=== PATIENT | female | born 1990 | race Caucasian/White ===

== ENCOUNTER 2018-11-01 13:27 | Outpatient (CLI) | payer BC | END 2018-11-01 15:12 | disposition home or self-care (01) | LOC: DL.OBCHECK 13:27 ==

== ENCOUNTER 2018-11-04 08:12 | Outpatient (CLI) | payer BC ==
--- NOTE | 2018-11-04 11:47 | HP ---
CHIEF COMPLAINT: "I think my water broke." HISTORY OF PRESENT ILLNESS: Mrs. Mota is a 28-year-old, 2, para 0-0- 1-0, female. Last menstrual period on 01/28/2018, EDC of 11/04/2018, EGA 40 weeks gestation. She reports to Labor and Delivery at [facility] in [facility] because she had leakage of fluid. She was also having some contractions. Denies any nausea, vomiting, or diarrhea. No fever or chills. No hematochezia, hematemesis, or hematuria. No dysuria, frequency, or urgency with urination. No leg pain, leg edema, or severe abdominal or back pain. The changes that she has had slight mucus, but is not continuous. She has not had any issues in the . She has done quite well. She is a patient of Dr. Rosie Terry. PAST MEDICAL HISTORY: She denies any hypertension, heart disease, seizure disorder, thyroid disorder, diabetes, thromboembolic disease, or breast lesions. She has history of asthma, degenerative joint disease, anxiety. SOCIAL HISTORY: She denies any tobacco use, alcohol use, or illicit drug use. She is and lives in [facility]. 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 OBSTETRICAL HISTORY: She had spontaneous AB in March 2014. ALLERGIES: No known drug allergies. MEDICATIONS: vitamin. LABORATORY DATA: Blood type A negative. Antibody screen negative. RPR nonreactive. Rubella nonimmune. Hepatitis B surface antigen nonreactive. Group B strep is negative. OBJECTIVE: General: Well-developed, well-nourished female, in no acute distress. Vital Signs: Stable, afebrile. Abdomen: Soft, gravid, nontender. Fundal height 40 cm. heart tones 130s to 140s, category 1 strip. Reactive NST. Occasional contraction. No pooling or leakage of fluid noted. Negative Nitrazine. Cervix at the most is fingertip with no changes during her stay here. Extremities: No edema, erythema, or tenderness noted. ASSESSMENT: 1. A 40-week intrauterine . 2. False labor. 3. Negative Nitrazine. No active leakage of fluid noted. PLAN: 1. Follow up with Dr. Rosie Terry on 11/07/2018, or sooner if labor occurs. 2. We had a long discussion on reasons to come in including bleeding, leakage of fluid, contractions every 2 to 3 minutes lasting more than a couple of hours. 3. All questions answered. [facility] /[id number]
== END 2018-11-04 10:39 | disposition home or self-care (01) ==
LOC: DL.OBCHECK 08:12
CPT/HCPCS: 83986

== ENCOUNTER 2018-11-05 21:00 | Inpatient (IN) | payer BC ==
[2018-11-05] MEDS ORDERED: hydrOXYzine HCl 25 MG Tab PO STA (23:04)
[2018-11-05] MEDS ORDERED: Nalbuphine 10 MG/1 ML Vial IM PRN (23:05)
[2018-11-06] MEDS ORDERED: Sodium Chloride 0.9% 10 ML Syringe FLUSH PRN ×2 (00:19→20:04)
[2018-11-06] MEDS: Acetaminophen 325 MG Tab PO PRN (02:42)
--- NOTE | 2018-11-06 03:15 | HP ---
CHIEF COMPLAINT: Increased frequency and more painful contractions. SUBJECTIVE: Wicho is a 28-year-old female, G2, P 0-0-1-0, at 40 weeks and 1 day gestational with medication exposure during first trimester due to back surgery (Robaxin and gabapentin) as well as hyperemesis gravidarum. The patient has had painful contractions ranging from 2 to 6 minutes apart. Contractions first started on (4 days ago). The contractions wake her up at night. She has some watery fluid, but not a lot. There has been some pink tinge in her mucus on Monday, Monday, and today. Denies any headaches, visual changes, chest pain. Only shortness of breath when she has contractions. She has had nausea and vomiting throughout the whole . Last time she vomited was yesterday. Denies any fevers or chills. HISTORY: Spontaneous in March 2014 at 4 weeks 0 days. This was not medically evaluated. PAST MEDICAL HISTORY: 1. Hyperemesis gravidarum with current . 2. Asthma (mild intermittent asthma without complication). 3. L5/S1 disk disease, degenerative disk disease. 4. Myofascial pain. 5. Anxiety. 6. Obesity. BMI between 35 and 39.9. PAST SURGICAL HISTORY: 1. L5/S1 diskectomy on 02/14/2018. 2. Cholecystectomy. 3. [place] teeth extraction. FAMILY HISTORY: Father and paternal grandmother, asthma; great aunt, breast cancer; paternal grandfather, diabetes; father and maternal grandfather, heart disease. SOCIAL HISTORY: Wicho lives at [facility] near [place] with Wilfredo Mota. He is a williamson with his cousin/uncle/family and with the [employer] Parents are originally from [place] (father) and [place] (mother), but goes between there and [place]. 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 She went through [employer] Nursing Program. She grew up in [place] and went to college there before moving here. She had a horse for the last 5 years and worked at [employer] before that. CURRENT MEDICATIONS: 1. Unisom. 2. Zofran. 3. Hydroxyzine. 4. Fluoxetine. 5. vitamin with iron. 6. Pantoprazole. 7. Acetaminophen. ALLERGIES: No known allergies. REVIEW OF SYSTEMS: HEENT: No headaches or visual changes. Pulmonary: Shortness of breath with her contractions. Cardiovascular: No chest pain, no palpitations. Gastrointestinal: Nausea and vomiting throughout . Last vomited yesterday. OBJECTIVE: Vital Signs: Temperature 98.8, blood pressure 117/80, pulse 84. heart rate 135, category 1 tracing. Contractions about every 4 to 8 minutes, variable. General: She is alert, cooperative, and bothered by contractions. HEENT: Grossly normal. Pulmonary: Lungs are clear to auscultation bilaterally. Cardiovascular: Regular rate and rhythm. No murmurs noted. Abdomen: Bowel sounds present. No pain to palpation. Gravid uterus noted. Extremities: 1+ edema bilaterally. No tenderness to palpation. Cervical: 2+, about 80% effaced, and -3 station. LABORATORY DATA: Blood type A-negative, rubella nonimmune, group B strep negative. ASSESSMENT: 1. G2, P 0-0-1-0 at 40 weeks and 1 day gestation. 2. Hyperemesis gravidarum. 3. Obesity. 4. Anxiety and depression. PLAN: Admit for observation. Continue routine labor care. The patient was seen and evaluated today by me and Dr. Terry. Assessment and plan are under advisement of Dr. Terry. Kavinkatina Roque, MS-III [facility] /[id number] I have seen and evaluated the above patient, and reviewed and edited the above notes. Agree with assessment and treatment plan. Rosie Terry MD [facility] SYSTEMColleen
[2018-11-06] MEDS: Lactated Ringers 1,000 ML IV SCH ×4 (06:44→13:02)
[2018-11-06] MEDS ORDERED: Lidocaine 1% 30 ML SDV INJECT PRN (07:26)
[2018-11-06] MEDS ORDERED: Methylergonovine 0.2 MG/1 ML Amp IM PRN (07:26)
[2018-11-06] MEDS ORDERED: Misoprostol 400 MCG (4 X 100 MCG TAB) RECTAL PRN ×2 (07:26→20:04)
[2018-11-06] MEDS ORDERED: Ondansetron 4 MG/2 ML SDV IV PRN (07:26)
[2018-11-06] MEDS ORDERED: Carboprost Tromethamine 250 MCG/1 ML Amp IM PRN ×2 (07:26→20:04)
[2018-11-06] MEDS ORDERED: Acetaminophen 325 MG Tab PO PRN ×2 (07:26→20:04)
[2018-11-06] MEDS ORDERED: Tranexamic Acid 1,000 MG in Sodium Chloride 0.9% 100 ML IV PRN ×2 (07:26→20:04)
[2018-11-06] MEDS ORDERED: fentaNYL 100 MCG/2 ML SDV ITHECAL ONE (07:27)
[2018-11-06] MEDS ORDERED: EPINEPHrine 1 MG/ML SDV ONE ×3 (07:27→12:45)
[2018-11-06] MEDS ORDERED: Oxytocin/Normal Saline 30 UNIT/500 ML BAG IV SCH (07:30)
[2018-11-06] MEDS ORDERED: fentaNYL 100 MCG/2 ML SDV ONE ×2 (07:31→12:45)
--- NOTE | 2018-11-06 08:19 | PCM.PRNOTE ---
- Free Text/Narrative Note: Requested to provide analgesia to full term patient in severe pain. Upon entering the room, patient is sitting on edge of bed complaining of severe abdominal/pelvic pain and discomfort. Procedure was discussed with patient including adverse outcomes and expectations. Pt has a history of back problems including a microdiscectomy at L5/S1 including multiple steroid injections for which she was "put to sleep" for them. Pt consented to analgesia, SAB/IT. Pt placed into a proper sitting position. Landmarks for SAB/IT were identified and marked. Hands were washed and appropriate PPE was applied. Back was prepped with betadine x3. A sterile, transparent, fenestrated drape was applied. Excess betadine was removed. Using 3 mL of a 1% lidocaine solution, a skin wheel was placed at the L2/L3 interspace. A 24 ga (4 inch) Pencan spinal needle was inserted unsuccessfully. Pt is extremely guarded of back and having a difficult time maintaining position for procedure. Attempt number two was at L3/L4 using a 24 ga (4 inch) Pencan spinal needle. The needle was inserted until positive for CSF. Negative for heme or paresthesias. Injected fentanyl 30 mcg, sufentanil 25 mcg, and 8.25 mg of a 0.75% bupivacaine solution with an epi wash. Pt was placed left lateral position for approximately 20 minutes. There were zero complications or adverse outcomes. Will continue to monitor. Procedure Date & Time: 11/06/18 [id number]
--- NOTE | 2018-11-06 09:09 | PN ---
DATE: 11/06/2018 SUBJECTIVE: The patient is a 28-year-old 2, para 0-0-1-0 presenting at 40 weeks and 2 days gestation via ultrasound on 11/04/2018. The patient presented to Labor and Delivery in early stages of labor on 11/05/2018 and has progressed well overnight. She has utilized the Jacuzzi tub as well as Vistaril and Nubain for pain control and to help relax and rest prior to active labor. She states she has continued to have contractions every 2 to 5 minutes with continuation of lots of active movement. After resting and receiving pain medication, the patient was checked again at 06:30 and was noted to be 6 cm, 85% effaced and -2 station. At this time, an intrathecal was desired and is being administered now at 07:45. The patient has no other concerns at this time. care received at [facility]--see EPIC episode for details. OBJECTIVE: Vital Signs: Temperature 97 degrees Fahrenheit, HR 92 bpm, BP 124/73, and RR 16 breaths per minute. General: Awake, alert, in mild distress due to contractions. HEENT: Grossly normal. Pulmonary: Lungs are clear to auscultation bilaterally. Cardiovascular: Regular rate and rhythm. No murmurs noted. Abdomen: Soft, nontender, normoactive bowel sounds. Gravid uterus palpated 21 cm above umbilicus. Extremities: Trace edema noted in ankles bilaterally. No calf tenderness bilaterally. Neurologic: Grossly normal. NST reactive. ASSESSMENT: The patient is a 28-year-old female, 2, para 0-0-1-0 female presenting at 40 weeks and 2 days gestation. The patient is now in active labor and received an intrathecal. GBS negative primipara A negative blood type rubella non-immune PLAN: 1. Continue expectant management of labor progression. The patient was seen and evaluated today by myself and Dr. Rosie Terry. Assessment and plan is under advisement of Dr. Terry. -Akosua Valverde MS-III [facility] /[id number] I have seen and evaluated this patient with the student, and have reviewed and edited the above notes. I agree with the evaluation and plan. Rosie Terry MD [facility]Col[facility]
[2018-11-06] MEDS: Pantoprazole 40 MG Tab.CR PO SCH (11:31)
--- NOTE | 2018-11-06 13:13 | PCM.PRNOTE ---
- Free Text/Narrative Note: Requested to provide analgesia to full term patient in severe pain. Upon entering the room, patient is sitting on edge of bed complaining of severe abdominal/pelvic pain and discomfort. Procedure was discussed with patient including adverse outcomes and expectations. Pt consented to analgesia, SAB/ IT. Pt placed into a proper sitting position. Landmarks for SAB/IT were identified and marked. Hands were washed and appropriate PPE was applied. Back was prepped with betadine x3. A sterile, transparent, fenestrated drape was applied. Excess betadine was removed. Using 3 mL of a 1% lidocaine solution , a skin wheel was placed at the L2/L3 interspace. A 24 ga (4 inch) Pencan spinal needle was inserted until positive for CSF. Negative for heme or paresthesias. Injected fentanyl 20 mcg, sufentanil 25 mcg, and 7.5 mg of a 0.75 % bupivacaine solution with an epi wash. Pt was placed left lateral position for approximately 20 minutes. There were zero complications or adverse outcomes. Will continue to monitor. Procedure Date & Time: 11/06/18 [id number]
--- NOTE | 2018-11-06 13:45 | PN ---
DATE: 10/27/2018 SUBJECTIVE: The patient is a 28-year-old 2, para 0-0-1-0, who presented in labor at 40 weeks' and 2 days' gestation. The patient was seen and evaluated at 10 a.m., and at cervical check, was noted to be 6 to 7 cm dilated, 90% effaced, -2 station. At this time, the patient underwent artificial rupture of membranes with bloody fluid present. The patient tolerated artificial rupture of membranes well and has now been monitored closely for progression of labor. OBJECTIVE: Vital Signs: Blood pressure 119/75, heart rate 88. General. Lying comfortably in bed, in no acute distress. Cervix: 6 to 7 cm dilated, 90% effaced, -2 station. After AROM, heart tone baseline 145 bpm, reactive. [place], intermittent contractions between 1 and 5 minutes. Category 1 strip. ASSESSMENT: The patient is a 28-year-old 2, para 0-0-1-0 presenting at 40 weeks' and 2 days' gestation with progression of labor. Artificial rupture of membranes at 10 a.m. Bloody fluid present. PLAN: Continue expectant management of labor. Following closely. The patient was seen and evaluated today by myself and Dr. Rosie Terry. Assessment and plan is under advisement of Dr. Terry. -Akosua Valverde MS-III [facility] /[id number] MTDD
--- NOTE | 2018-11-06 14:18 | PN ---
DATE: 11/06/2018 SUBJECTIVE: The patient was noted to be feeling contractions again after intrathecal anesthesia. Upon repeat check, the patient was noted to still be 7 cm with a second bag of water that was now bulging. So artificial rupture of membranes was repeated and with production of clear fluid. The patient is breathing through contractions at this time as they have gotten closer together, and baby tolerated procedure well. heart tones are baseline 140 at this time. Moderately reactive. Contractions are noted every 1-1/2 to 3 minutes in duration. OBJECTIVE: Vital Signs: Blood pressure 140/78. Cervix: 7 cm dilated, 90% effaced, -2 station. Clear fluid present at exam. ASSESSMENT: The patient is a 28-year-old, 2, para 0-0-1-0 presenting at 40-2/7 weeks' gestation in labor. PLAN: Continue expectant management. a second intrathecal is felt to be appropriate at this time. The patient was seen and evaluated today by myself and Dr. Rosie Terry. Assessment and plan is under advisement of Dr. Terry. [facility] /[id number] Rosie Terry MD MTDD
--- NOTE | 2018-11-06 19:15 | PCM.DEL ---
<Akosua Valverde - Last Filed: 11/06/18 19:50> L & D Note - General Info Date of Service: 11/06/18 Mother's Due Date: 11/04/18 - Delivery Note Labor: Spontaneous, Augmented by Oxytocin Delivery Outcome: Livebirth Infant Delivery Method: Spontaneous Vaginal Delivery-Single Infant Delivery Mode: Vacuum Extraction Presentation: Left Occiput Posterior (LOP) Nuchal Cord: None Anesthesia Type: Intrathecal Anesthetic: Lidocaine (Xylocaine) 0.5% Plain Local Anesthetic Volume: 5cc Amniotic Fluid Description: Clear Episiotomy Type: None Laceration: 2nd Degree, Perineal, Vaginal (small hemostatic on right anterior) Suture type: Vicryl Suture size: 2-0 Placenta: Intact Cord: 3 Vessels Estimated Blood Loss: 300 Resuscitation Needed: No : Bulb Syringe, Stimulated, Warmed, [place] Used, Warmer Used Provider: Rosie Terry Score 1 min: 7 Score 5 min: 8 Second Stage Interventions: Reports: Laboring Down, Pushing, Reverse Squat, Pushing Ineffectively, Pushing, Feet in Foot Rests, Pushing, Knee Chest Position , Pushing, Squat Bar Pulling on Device, Pushing, Squat Bar Pulling on Sheet, Pushing, Stirrups/Leg Supports Delivery Comments (Free Text/Narrative):: Patient is a 28 year old [id number] who presented in early labor at 40w2d gestation. Patient received 2 intrathecals for pain control which allowed for progression of labor. Please see labor progress notes for further details. Patient was complete at around 14:30 and was allowed to labor down. Began pushing at 15:50. Multiple pushing positions utilized with coaching. Intermittent effective pushing noted. Due to ineffective pushing and failure to progress with intermittent tachycardia procedure with vacuum assisted delivery was done and verbal consent by patient was given. A low profile Kiwi device was placed and with single contraction vacuum provided progression through the canal to head presentation past . Baby presented in LOP position. Patient was instruction to push and anterior shoulder was assisted and delivery of body followed shortly thereafter at 18:30. Baby was dried, stimulated and bulb suctioned with only weak momentary cry heard. Three vessel cord was then clamped and cut by father of baby (Wilfredo). Baby was brought to warmer, stimulated, and given 2 breaths with CPAP providing adequate respirations without intervention thereafter. Fundal massage was done with subsequent delivery of intact placenta at 18:38. Inspection of vagina showed one small anterior vaginal wall laceration on right that was hemostatic and did not necessitate repair. A grade 2 perineal laceration was visualized and repaired successfully with hemostasis. Patient was then cleaned and baby was kept in room to initiate bonding and . Induction Criteria - Augmentation Estimated Pelvis: Reports: Adequate Weight Estimated:: Reports: AGA Reassuring Monitoring Strip: Yes Absence of Tachy Systole: Yes Vacuum Extractor Progress Note - Alternative Labor Strategies Considered Alternative Labor Strategies Considered:: Reports: Yes Strategies Considered:: Reports: Contraction Intensity Adequate, Position Changes Used to Facilitate Rotation & Descent, Empty Bladder, Rest Indications Considered:: Reports: Yes Indications:: Reports: Prolonged 2nd Stage, Shortening of 2nd Stage for Maternal Benefit, Suspicion of Immediate or Potential Compromise Time Out:: Reports: Yes - Patient Prepared Patient Prepared:: Reports: Yes Informed Consent:: Reports: Verbal Risks: Reports: Yes Anesthesia/Analgesia Adequate:: Reports: Yes Comments:: Intrathecal - Probability of Success High Probability of Success:: Reports: Yes Weight Estimated:: Reports: AGA Patient Diabetic:: Reports: No Pelvis Adequate:: Reports: Yes Position:: LOP Asynclitic:: Reports: No Station:: +2 - Application Time Maximum Application Time & Number of Pop-Offs Predetermined:: Reports: Yes Total Application Time (min): *max=20min: 1 (with less than 1 contraction) Number of Times Cup Disengaged:: 0 Type of Vacuum Used:: Reports: Low profile Vacuum Extraction: Successful - Exit Strategy Exit strategy available:: Reports: Yes and resuscitation teams readily available:: Reports: Yes Consult as indicated:: Not Indicated Comments:: Successful Vacuum without complication - Patient Data Vitals - Most Recent: Last Vital Signs Temp 98.8 F 11/06/18 13:05 Pulse 69 11/06/18 14:30 Resp 16 11/06/18 14:30 BP 108/61 11/06/18 14:30 Pulse Ox 98 11/06/18 13:15 Weight - Most Recent: 246 lb I&O - Last 24 Hours: Intake & Output 11/06/18 11/06/18 11/06/18 06:59 14:59 22:59 Intake Total 1999 Balance 1999 Lab Results Last 24 Hours: Laboratory Results - last 24 hr 11/05/18 11/05/18 Range/Units 22:35 23:55 WBC 12.1 H (5.0-10.0) 10^3/uL RBC 4.36 (4.2-5.4) 10^6/uL Hgb 13.6 (12.0-16.0) g/dL Hct 39.6 (37.0-47.0) % MCV 90.8 (80-100) fL MCH 31.2 (27.0-34.0) pg MCHC 34.3 (33.0-35.0) g/dL Plt Count 216 (150-450) 10^3/uL Neut % (Auto) 75.0 (42.2-75.2) % Lymph % (Auto) 16.4 L (20.5-50.1) % [place] % (Auto) 8.2 H (2-8) % Eos % (Auto) 0.2 L (1.0-3.0) % Baso % (Auto) 0.2 (0.0-1.0) % Urine Color Yellow (YELLOW) Urine Appearance Clear (CLEAR) Urine pH 8.5 (5.0-9.0) Ur Specific [place] 1.015 (1.005-1.030) Urine Protein Trace H (NEGATIVE) Urine Glucose (UA) Negative (NEGATIVE) Urine Ketones Negative (NEGATIVE) Urine Occult Blood Trace-intact H (NEGATIVE) Urine Nitrite Negative (NEGATIVE) Urine Bilirubin Negative (NEGATIVE) Urine Urobilinogen 0.2 (0.2-1.0) mg/dL Ur Leukocyte Esterase Negative (NEGATIVE) Urine RBC 0-5 /HPF Urine WBC 0-5 (0-5/HPF) /HPF Ur Epithelial Cells Few /HPF Urine Bacteria Few (0-FEW/HPF) /HPF Med Orders - Current: Current Medications Acetaminophen (Tylenol) 650 mg PO Q6H PRN PRN Reason: Pain Last Admin: 11/06/18 02:42 Dose: 650 mg Acetaminophen (Tylenol) 650 mg PO Q4H PRN PRN Reason: Pain (Mild 1-3) and fever Carboprost Tromethamine (Hemabate Ds) 250 mcg IM ASDIRECTED PRN PRN Reason: HEMORRHAGE Lactated Ringer's (Ringers, Lactated) 1,000 mls @ 125 mls/hr IV ASDIRECTED [facility] Last Admin: 11/06/18 07:34 Dose: 125 mls/hr Lactated Ringer's (Ringers, Lactated) 1,000 mls @ 125 mls/hr IV ASDIRECTED [facility] Last Admin: 11/06/18 13:02 Dose: 125 mls/hr Oxytocin/Sodium Chloride (Pitocin In Ns 30 Unit/500 Ml) 30 unit in 500 mls @ 2 mls/hr IV TITRATE JOAQUIN; Protocol Last Titration: 11/06/18 18:38 Dose: 500 mls/hr Tranexamic Acid 1,000 mg/ (Sodium Chloride) 110 mls @ 660 mls/hr IV ONETIME PRN PRN Reason: Bleeding Lidocaine HCl (Xylocaine-Mpf 1%) 30 ml INJECT ASDIRECTED PRN PRN Reason: Perineal Repair Last Admin: 11/06/18 18:50 Dose: 30 ml Methylergonovine Maleate (Methergine) 0.2 mg IM ASDIRECTED PRN PRN Reason: Hemorrhage Misoprostol (Cytotec) 800 mcg RECTAL ASDIRECTED PRN PRN Reason: Hemorrhage Ondansetron HCl (Zofran) 4 mg IV Q4H PRN PRN Reason: Nausea/Vomiting Pantoprazole Sodium (Protonix) 40 mg PO ACBREAKFAST [facility] Last Admin: 11/06/18 11:31 Dose: 40 mg Sodium Chloride (Saline Flush) 10 ml FLUSH ASDIRECTED PRN PRN Reason: Keep Vein Open Discontinued Medications Epinephrine HCl (Adrenalin) Confirm Administered Dose 1 mg .ROUTE .STK-MED ONE Stop: 11/06/18 07:33 Last Admin: 11/06/18 18:09 Dose: Not Given Epinephrine HCl (Adrenalin) 0.1 mg .XX .STK-MED ONE Stop: 11/06/18 07:28 Epinephrine HCl (Adrenalin) Confirm Administered Dose 1 mg .ROUTE .STK-MED ONE Stop: 11/06/18 12:46 Last Admin: 11/06/18 18:09 Dose: Not Given Fentanyl (Sublimaze) Confirm Administered Dose 100 mcg .ROUTE .STK-MED ONE Stop: 11/06/18 07:32 Last Admin: 11/06/18 18:09 Dose: Not Given Fentanyl (Sublimaze) 30 mcg ITHECAL .STK-MED ONE Stop: 11/06/18 07:28 Fentanyl (Sublimaze) Confirm Administered Dose 100 mcg .ROUTE .STK-MED ONE Stop: 11/06/18 12:46 Last Admin: 11/06/18 18:09 Dose: Not Given Hydroxyzine HCl (Atarax) 100 mg PO ONETIME STA Stop: 11/05/18 23:05 Last Admin: 11/05/18 23:35 Dose: 100 mg Nalbuphine HCl (Nubain) 20 mg IM ONETIME PRN PRN Reason: Pain Last Admin: 11/06/18 03:44 Dose: 20 mg Sufentanil Citrate (Sufenta) Confirm Administered Dose 50 mcg .ROUTE .STK-MED ONE Stop: 11/06/18 07:33 Last Admin: 11/06/18 18:09 Dose: Not Given Sufentanil Citrate (Sufenta) 25 mcg ITHECAL .STK-MED ONE Stop: 11/06/18 07:28 Sufentanil Citrate (Sufenta) Confirm Administered Dose 50 mcg .ROUTE .STK-MED ONE Stop: 11/06/18 12:47 Last Admin: 11/06/18 18:10 Dose: Not Given - Problem List & Annotations (1) Vacuum extractor delivery, delivered SNOMED Code(s): 345614061 Code(s): O66.5 - ATTEMPTED APPLICATION OF VACUUM EXTRACTOR AND FORCEPS Status: Acute Current Visit: Yes - Problem List Review Problem List Initiated/Reviewed/Updated: Yes - My Orders Last 24 Hours: My Active Orders 11/06/18 07:26 Patient Status [ADT] Routine Communication Order [RC] ASDIRECTED Heart Tones [RC] PER UNIT ROUTINE Notify Provider Vital Signs OB [RC] ASDIRECTED Notify Provider [RC] PRN Pump Management, Intrathecal [RC] ASDIRECTED Up ad Alida [RC] ASDIRECTED Vital Signs [RC] PER UNIT ROUTINE Acetaminophen [Tylenol] 650 mg PO Q4H PRN Carboprost Tromethamine [Hemabate DS] 250 mcg IM ASDIRECTED PRN Lidocaine 1% [Xylocaine-MPF 1%] 30 ml INJECT ASDIRECTED PRN Methylergonovine [Methergine] 0.2 mg IM ASDIRECTED PRN Ondansetron [Zofran] 4 mg IV Q4H PRN Tranexamic Acid [Cyklokapron] 1,000 mg Sodium Chloride 0.9% [Normal Saline] 100 ml IV ONETIME miSOPROStol [Cytotec] 800 mcg RECTAL ASDIRECTED PRN Resuscitation Status Routine 11/06/18 07:30 Lactated Ringers [Ringers, Lactated] 1,000 ml IV ASDIRECTED Oxytocin/Normal Saline [Pitocin in NS 30 UNIT/500 ML] 30 unit in 500 ml IV TITRATE - Assessment Assessment:: Patient is a 28 year old [id number] female who presented at 40w2d gestation in early labor with progression to vacuum assisted vaginal delivery with 2nd degree perineal laceration. - Plan Plan:: 1. Initiate routine cares. 2. . 3. 2nd degree perineal laceration. 4. A-, GBS-, RNI. Labor and delivery was completed today by myself and Dr. Rosie Terry. Assessment and Plan is under advisement of Dr. Rosie Terry. -Akosua Valverde, MS-III <Rosie Terry M - Last Filed: 11/08/18 10:32> L & D Note - General Info Date of Service: 11/06/18 - Delivery Note Anesthetic: Lidocaine (Xylocaine) 1% Plain Vacuum Extractor Progress Note - Alternative Labor Strategies Considered Alternative Labor Strategies Considered:: Reports: Yes - General Info Date of Service: 11/06/18 - Patient Data Vitals - Most Recent: Last Vital Signs Temp 98.2 F 11/07/18 20:00 Pulse 101 H 11/07/18 20:00 Resp 16 11/07/18 20:00 BP 109/69 11/07/18 20:00 Pulse Ox 96 11/07/18 07:26 Lab Results Last 24 Hours: Laboratory Results - last 24 hr 11/07/18 11/08/18 Range/Units 06:20 06:45 WBC 10.5 H (5.0-10.0) 10^3/uL RBC 3.17 L (4.2-5.4) 10^6/uL Hgb 9.9 L D (12.0-16.0) g/dL Hct 30.0 L (37.0-47.0) % MCV 94.6 D (80-100) fL MCH 31.2 (27.0-34.0) pg MCHC 33.0 (33.0-35.0) g/dL Plt Count 164 (150-450) 10^3/uL Blood Type A NEGATIVE Gel Antibody Screen Negative Rhogam Indicated Yes, baby rh pos H Med Orders - Current: Current Medications Acetaminophen (Tylenol) 650 mg PO Q6H PRN PRN Reason: Pain Last Admin: 11/07/18 08:49 Dose: 650 mg Acetaminophen (Tylenol) 650 mg PO Q4H PRN PRN Reason: Pain (Mild 1-3) and fever Acetaminophen (Tylenol) 650 mg PO Q6H PRN PRN Reason: mild pain or fever Benzocaine/Menthol (Dermoplast Pain Relief [place]) 0 gm TOP Q4H PRN PRN Reason: Perineal comfort measures Carboprost Tromethamine (Hemabate Ds) 250 mcg IM ASDIRECTED PRN PRN Reason: HEMORRHAGE Carboprost Tromethamine (Hemabate Ds) 250 mcg IM ASDIRECTED PRN PRN Reason: Excessive vaginal bleeding Docusate Sodium (Colace) 100 mg PO BID PRN PRN Reason: Constipation Last Admin: 11/08/18 08:39 Dose: 100 mg Lactated Ringer's (Ringers, Lactated) 1,000 mls @ 125 mls/hr IV ASDIRECTED JOAQUIN Last Admin: 11/06/18 13:02 Dose: 125 mls/hr Oxytocin/Sodium Chloride (Pitocin In Ns 30 Unit/500 Ml) 30 unit in 500 mls @ 2 mls/hr IV TITRATE JOAQUIN; Protocol Last Titration: 11/06/18 19:39 Dose: 125 mls/hr Tranexamic Acid 1,000 mg/ (Sodium Chloride) 110 mls @ 660 mls/hr IV ONETIME PRN PRN Reason: Bleeding Tranexamic Acid 1,000 mg/ (Sodium Chloride) 110 mls @ 660 mls/hr IV ONETIME PRN PRN Reason: Bleeding Ibuprofen (Motrin) 800 mg PO Q8H PRN PRN Reason: Mild Pain or Fever Last Admin: 11/08/18 08:39 Dose: 800 mg Lidocaine HCl (Xylocaine-Mpf 1%) 30 ml INJECT ASDIRECTED PRN PRN Reason: Perineal Repair Last Admin: 11/06/18 18:50 Dose: 30 ml Methylergonovine Maleate (Methergine) 0.2 mg IM ASDIRECTED PRN PRN Reason: Hemorrhage Misoprostol (Cytotec) 800 mcg RECTAL ASDIRECTED PRN PRN Reason: Hemorrhage Misoprostol (Cytotec) 800 mcg RECTAL ONETIME PRN PRN Reason: Hemorrhage Ondansetron HCl (Zofran) 4 mg IV Q4H PRN PRN Reason: Nausea/Vomiting Oxytocin (Pitocin) 10 unit IM ONETIME PRN PRN Reason: Bleeding Pantoprazole Sodium (Protonix) 40 mg PO ACBREAKFAST [facility] Last Admin: 11/08/18 07:42 Dose: 40 mg Prenat Multivit/[place]/Iron/Folic Ac ( Plus Iron) 1 each PO DAILY [facility] Last Admin: 11/08/18 08:38 Dose: 1 each Simethicone (Simethicone) 80 mg PO Q4H PRN PRN Reason: Gas Sodium Chloride (Saline Flush) 10 ml FLUSH ASDIRECTED PRN PRN Reason: Keep Vein Open Sodium Chloride (Saline Flush) 10 ml FLUSH ASDIRECTED PRN PRN Reason: Keep Vein Open Zolpidem Tartrate (Ambien) 5 mg PO BEDTIME PRN PRN Reason: Insomnia Discontinued Medications Epinephrine HCl (Adrenalin) Confirm Administered Dose 1 mg .ROUTE .STK-MED ONE Stop: 11/06/18 07:33 Last Admin: 11/06/18 18:09 Dose: Not Given Epinephrine HCl (Adrenalin) 0.1 mg .XX .STK-MED ONE Stop: 11/06/18 07:28 Epinephrine HCl (Adrenalin) Confirm Administered Dose 1 mg .ROUTE .STK-MED ONE Stop: 11/06/18 12:46 Last Admin: 11/06/18 18:09 Dose: Not Given Epinephrine HCl (Adrenalin) 0.1 mg IV .STK-MED ONE Stop: 11/07/18 13:29 Fentanyl (Sublimaze) Confirm Administered Dose 100 mcg .ROUTE .STK-MED ONE Stop: 11/06/18 07:32 Last Admin: 11/06/18 18:09 Dose: Not Given Fentanyl (Sublimaze) 30 mcg ITHECAL .STK-MED ONE Stop: 11/06/18 07:28 Fentanyl (Sublimaze) Confirm Administered Dose 100 mcg .ROUTE .STK-MED ONE Stop: 11/06/18 12:46 Last Admin: 11/06/18 18:09 Dose: Not Given Fentanyl (Sublimaze) 20 mcg IV .STK-MED ONE Stop: 11/07/18 13:29 Hydroxyzine HCl (Atarax) 100 mg PO ONETIME STA Stop: 11/05/18 23:05 Last Admin: 11/05/18 23:35 Dose: 100 mg Lactated Ringer's (Ringers, Lactated) 1,000 mls @ 125 mls/hr IV ASDIRECTED JOAQUIN Last Admin: 11/06/18 07:34 Dose: 125 mls/hr Measles/Mumps/Rubella Vaccine Live (M-M-R Ii Vaccine) 0.5 ml SUBCUT .ONCE ONE Stop: 11/07/18 07:16 Last Admin: 11/07/18 14:03 Dose: 0.5 ml Nalbuphine HCl (Nubain) 20 mg IM ONETIME PRN PRN Reason: Pain Last Admin: 11/06/18 03:44 Dose: 20 mg Sufentanil Citrate (Sufenta) Confirm Administered Dose 50 mcg .ROUTE .STK-MED ONE Stop: 11/06/18 07:33 Last Admin: 11/06/18 18:09 Dose: Not Given Sufentanil Citrate (Sufenta) 25 mcg ITHECAL .STK-MED ONE Stop: 11/06/18 07:28 Sufentanil Citrate (Sufenta) Confirm Administered Dose 50 mcg .ROUTE .STK-MED ONE Stop: 11/06/18 12:47 Last Admin: 11/06/18 18:10 Dose: Not Given Sufentanil Citrate (Sufenta) 25 mcg IV .STK-MED ONE Stop: 11/07/18 13:29 - Problem List Review Problem List Initiated/Reviewed/Updated: Yes
[2018-11-06] MEDS ORDERED: Benzocaine/Menthol 20%-0.5% Spray 56 GM Canister TOP PRN (20:04)
[2018-11-06] MEDS ORDERED: Simethicone 80 MG Tab.Chew PO PRN (20:04)
[2018-11-06] MEDS ORDERED: Oxytocin 10 Units/1 ML SDV IM PRN (20:04)
[2018-11-06] MEDS ORDERED: Zolpidem 5 MG Tab PO PRN (20:04)
[2018-11-07] MEDS: Ibuprofen 800 MG Tab PO PRN ×3 (05:26→22:53)
[2018-11-07] MEDS: Pantoprazole 40 MG Tab.CR PO SCH (05:26)
[2018-11-07] MEDS ORDERED: Measles, Mumps & Rubella Vaccine 0.5 ML SDV SUBCUT ONE (07:15)
--- NOTE | 2018-11-07 07:36 | PCM.PNPP ---
- General Info Date of Service: 11/07/18 Subjective Update: Patient is a 28 year old G2 now P1-0-1-1 who presented in labor at 40w2d. Patient is S/P day #1 from [facility] and delivery of term female . Patient did well overnight. Patient reports being sore and tender. Normal amount of cramping and lochia. Tolerating general diet, ambulating well, urinating, and passing flatus. has been initiating and feels it is going well. Denies fever, chills, headache, blurry vision, chest pain, shortness of breath, abdominal pain, or lower extremity swelling/tenderness. - General Info Date of Service: 11/07/18 - Patient Data Vital Signs - Most Recent: Last Vital Signs Temp 98.7 F 11/06/18 19:54 Pulse 116 H 11/06/18 20:09 Resp 20 11/06/18 20:09 BP 120/71 11/06/18 20:09 Pulse Ox 98 11/06/18 13:15 Weight - Most Recent: 246 lb I&O - Last 24 Hours: Intake & Output 11/06/18 11/07/18 11/07/18 22:59 06:59 14:59 Intake Total 1300 Output Total 400 450 Balance -400 850 Med Orders - Current: Current Medications Acetaminophen (Tylenol) 650 mg PO Q6H PRN PRN Reason: Pain Last Admin: 11/06/18 02:42 Dose: 650 mg Acetaminophen (Tylenol) 650 mg PO Q4H PRN PRN Reason: Pain (Mild 1-3) and fever Acetaminophen (Tylenol) 650 mg PO Q6H PRN PRN Reason: mild pain or fever Benzocaine/Menthol (Dermoplast Pain Relief [place]) 0 gm TOP Q4H PRN PRN Reason: Perineal comfort measures Carboprost Tromethamine (Hemabate Ds) 250 mcg IM ASDIRECTED PRN PRN Reason: HEMORRHAGE Carboprost Tromethamine (Hemabate Ds) 250 mcg IM ASDIRECTED PRN PRN Reason: Excessive vaginal bleeding Docusate Sodium (Colace) 100 mg PO BID PRN PRN Reason: Constipation Lactated Ringer's (Ringers, Lactated) 1,000 mls @ 125 mls/hr IV ASDIRECTED JOAQUIN Last Admin: 11/06/18 13:02 Dose: 125 mls/hr Oxytocin/Sodium Chloride (Pitocin In Ns 30 Unit/500 Ml) 30 unit in 500 mls @ 2 mls/hr IV TITRATE JOAQUIN; Protocol Last Titration: 11/06/18 19:39 Dose: 125 mls/hr Tranexamic Acid 1,000 mg/ (Sodium Chloride) 110 mls @ 660 mls/hr IV ONETIME PRN PRN Reason: Bleeding Tranexamic Acid 1,000 mg/ (Sodium Chloride) 110 mls @ 660 mls/hr IV ONETIME PRN PRN Reason: Bleeding Ibuprofen (Motrin) 800 mg PO Q8H PRN PRN Reason: Mild Pain or Fever Last Admin: 11/07/18 05:26 Dose: 800 mg Lidocaine HCl (Xylocaine-Mpf 1%) 30 ml INJECT ASDIRECTED PRN PRN Reason: Perineal Repair Last Admin: 11/06/18 18:50 Dose: 30 ml Methylergonovine Maleate (Methergine) 0.2 mg IM ASDIRECTED PRN PRN Reason: Hemorrhage Misoprostol (Cytotec) 800 mcg RECTAL ASDIRECTED PRN PRN Reason: Hemorrhage Misoprostol (Cytotec) 800 mcg RECTAL ONETIME PRN PRN Reason: Hemorrhage Ondansetron HCl (Zofran) 4 mg IV Q4H PRN PRN Reason: Nausea/Vomiting Oxytocin (Pitocin) 10 unit IM ONETIME PRN PRN Reason: Bleeding Pantoprazole Sodium (Protonix) 40 mg PO ACBREAKFAST JOAQUIN Last Admin: 11/07/18 05:26 Dose: 40 mg Prenat Multivit/[place]/Iron/Folic Ac ( Plus Iron) 1 each PO DAILY [facility] Simethicone (Simethicone) 80 mg PO Q4H PRN PRN Reason: Gas Sodium Chloride (Saline Flush) 10 ml FLUSH ASDIRECTED PRN PRN Reason: Keep Vein Open Sodium Chloride (Saline Flush) 10 ml FLUSH ASDIRECTED PRN PRN Reason: Keep Vein Open Zolpidem Tartrate (Ambien) 5 mg PO BEDTIME PRN PRN Reason: Insomnia Discontinued Medications Epinephrine HCl (Adrenalin) Confirm Administered Dose 1 mg .ROUTE .STK-MED ONE Stop: 11/06/18 07:33 Last Admin: 11/06/18 18:09 Dose: Not Given Epinephrine HCl (Adrenalin) 0.1 mg .XX .STK-MED ONE Stop: 11/06/18 07:28 Epinephrine HCl (Adrenalin) Confirm Administered Dose 1 mg .ROUTE .STK-MED ONE Stop: 11/06/18 12:46 Last Admin: 11/06/18 18:09 Dose: Not Given Fentanyl (Sublimaze) Confirm Administered Dose 100 mcg .ROUTE .STK-MED ONE Stop: 11/06/18 07:32 Last Admin: 11/06/18 18:09 Dose: Not Given Fentanyl (Sublimaze) 30 mcg ITHECAL .STK-MED ONE Stop: 11/06/18 07:28 Fentanyl (Sublimaze) Confirm Administered Dose 100 mcg .ROUTE .STK-MED ONE Stop: 11/06/18 12:46 Last Admin: 11/06/18 18:09 Dose: Not Given Hydroxyzine HCl (Atarax) 100 mg PO ONETIME STA Stop: 11/05/18 23:05 Last Admin: 11/05/18 23:35 Dose: 100 mg Lactated Ringer's (Ringers, Lactated) 1,000 mls @ 125 mls/hr IV ASDIRECTED JOAQUIN Last Admin: 11/06/18 07:34 Dose: 125 mls/hr Measles/Mumps/Rubella Vaccine Live (M-M-R Ii Vaccine) 0.5 ml SUBCUT .ONCE ONE Stop: 11/07/18 07:16 Nalbuphine HCl (Nubain) 20 mg IM ONETIME PRN PRN Reason: Pain Last Admin: 11/06/18 03:44 Dose: 20 mg Sufentanil Citrate (Sufenta) Confirm Administered Dose 50 mcg .ROUTE .STK-MED ONE Stop: 11/06/18 07:33 Last Admin: 11/06/18 18:09 Dose: Not Given Sufentanil Citrate (Sufenta) 25 mcg ITHECAL .STK-MED ONE Stop: 11/06/18 07:28 Sufentanil Citrate (Sufenta) Confirm Administered Dose 50 mcg .ROUTE .STK-MED ONE Stop: 11/06/18 12:47 Last Admin: 11/06/18 18:10 Dose: Not Given - Infant Interaction Disposition, : [place] in Room with Family Interaction: Holding Feeding: Continues to Breastfeed, Difficulty with [place]atch-on Support Person: - Recovery Exam Fundal Tone: Firm Fundal Level: At Umbilicus Fundal Placement: Midline Lochia Amount: Moderate Lochia Color: Rubra/Red Perineum Description: Intact, Minimal Bruising/Swelling Episiotomy/Laceration: Approximated Bladder Status: Nonpalpable - Exam General: Alert, Oriented, No Acute Distress HEENT: EOMI Neck: Supple Lungs: Clear to Auscultation Cardiovascular: Regular Rate, Regular Rhythm GI/Abdominal Exam: Normal Bowel Sounds, Soft, Non-Tender Extremities: Normal Inspection, No Pedal Edema Skin: Warm, Dry, Intact Neurological: No New Focal Deficit Psy/Mental Status: Alert, Normal Mood - Problem List & Annotations (1) Vacuum extractor delivery, delivered SNOMED Code(s): 400602135 Code(s): O66.5 - ATTEMPTED APPLICATION OF VACUUM EXTRACTOR AND FORCEPS Status: Acute Current Visit: Yes - Problem List Review Problem List Initiated/Reviewed/Updated: Yes - My Orders Last 24 Hours: My Active Orders 11/06/18 07:26 Patient Status [ADT] Routine Notify Provider Vital Signs OB [RC] ASDIRECTED Up ad Alida [RC] ASDIRECTED Vital Signs [RC] PER UNIT ROUTINE Acetaminophen [Tylenol] 650 mg PO Q4H PRN Carboprost Tromethamine [Hemabate DS] 250 mcg IM ASDIRECTED PRN Lidocaine 1% [Xylocaine-MPF 1%] 30 ml INJECT ASDIRECTED PRN Methylergonovine [Methergine] 0.2 mg IM ASDIRECTED PRN Ondansetron [Zofran] 4 mg IV Q4H PRN Tranexamic Acid [Cyklokapron] 1,000 mg Sodium Chloride 0.9% [Normal Saline] 100 ml IV ONETIME miSOPROStol [Cytotec] 800 mcg RECTAL ASDIRECTED PRN Resuscitation Status Routine 11/06/18 07:30 Lactated Ringers [Ringers, Lactated] 1,000 ml IV ASDIRECTED Oxytocin/Normal Saline [Pitocin in NS 30 UNIT/500 ML] 30 unit in 500 ml IV TITRATE 11/06/18 20:04 Notify Provider Vital Signs OB [RC] ASDIRECTED Up ad Alida [RC] ASDIRECTED Vital Signs [RC] PFP Acetaminophen [Tylenol] 650 mg PO Q6H PRN Benzocaine/Menthol [Dermoplast Pain Relief [place]] See Dose Instructions TOP Q4H PRN Carboprost Tromethamine [Hemabate DS] 250 mcg IM ASDIRECTED PRN Docusate Sodium [Colace] 100 mg PO BID PRN Ibuprofen [Motrin] 800 mg PO Q8H PRN Oxytocin [Pitocin] 10 unit IM ONETIME PRN Simethicone 80 mg PO Q4H PRN Sodium Chloride 0.9% [Saline Flush] 10 ml FLUSH ASDIRECTED PRN Tranexamic Acid [Cyklokapron] 1,000 mg Sodium Chloride 0.9% [Normal Saline] 100 ml IV ONETIME Zolpidem [Ambien] 5 mg PO BEDTIME PRN miSOPROStol [Cytotec] 800 mcg RECTAL ONETIME PRN Assess Lochia [WOMSER] Per Unit Routine Assess Uterine Involution [WOMSER] Per Unit Routine Breast Pump [WOMSER] Per Unit Routine Ice Therapy [OM.PC] Per Unit Routine Perineal Care [OM.PC] Per Unit Routine Saline Lock Insert [OM.PC] Urgent Sitz Bath [OM.PC] Per Unit Routine 11/07/18 07:16 Vaccines to be Administered [RC] PER UNIT ROUTINE 11/07/18 09:00 Vit with Ca/FA/Iron [ Plus Iron] 1 each PO DAILY 11/08/18 06:00 CBC W/O DIFF,HEMOGRAM [HEME] Routine - Assessment Assessment:: Patient is a 28 year old S8C4-1-0-3 female who presented at 40w2d gestation in early labor and is now day #1 from vacuum assisted vaginal delivery with 2nd degree perineal laceration. - Plan Plan:: 1. Continue routine cares. 2. . 3. 2nd degree perineal laceration. 4. A-, GBS-, RNI. Patient was seen and evaluated today by myself and Dr. Rosie Terry. Assessment and Plan is under advisement of Dr. Rosie Terry. -Akosua Valverde, MS-III
[2018-11-07] MEDS: Prenatal Multivitamin with Calcium/Folic Acid/Iron Tab PO SCH (08:48)
[2018-11-07] MEDS: Docusate Sodium 100 MG Cap PO PRN ×2 (08:48→22:53)
[2018-11-07] MEDS: Acetaminophen 325 MG Tab PO PRN (08:49)
[2018-11-07] MEDS ORDERED: EPINEPHrine 1 MG/ML SDV IV ONE (13:28)
[2018-11-07] MEDS ORDERED: fentaNYL 100 MCG/2 ML SDV IV ONE (13:28)
[2018-11-08] MEDS: Pantoprazole 40 MG Tab.CR PO SCH (07:42)
[2018-11-08] MEDS: Prenatal Multivitamin with Calcium/Folic Acid/Iron Tab PO SCH (08:38)
[2018-11-08] MEDS: Ibuprofen 800 MG Tab PO PRN (08:39)
[2018-11-08] MEDS: Docusate Sodium 100 MG Cap PO PRN (08:39)
--- NOTE | 2018-11-08 10:59 | PCM.DCSUM1 ---
Discharge Summary - Hospital Course Diagnosis: Stroke: No - Discharge Data Discharge Date: 11/08/18 (discharge day) Discharge Disposition: Home, Self-Care 01 Condition: Good - Discharge Plan Home Medications: Home Meds FLUoxetine [PROzac] 20 mg PO BEDTIME 11/01/18 [History] Orphenadrine [Norflex] 100 mg PO BID PRN 11/01/18 [History] Pantoprazole Sodium [Protonix] 40 mg PO DAILY 11/01/18 [History] Vit/FA/Fe Fumarate/Se [ MTR] 1 tab PO DAILY 11/01/18 [History] - Patient Data Vitals - Most Recent: Last Vital Signs Temp 98.2 F 11/07/18 20:00 Pulse 101 H 11/07/18 20:00 Resp 16 11/07/18 20:00 BP 109/69 11/07/18 20:00 Pulse Ox 96 11/07/18 07:26 Weight - Most Recent: 246 lb Lab Results - Last 24 hrs: Laboratory Results - last 24 hr 11/07/18 11/08/18 Range/Units 06:20 06:45 WBC 10.5 H (5.0-10.0) 10^3/uL RBC 3.17 L (4.2-5.4) 10^6/uL Hgb 9.9 L D (12.0-16.0) g/dL Hct 30.0 L (37.0-47.0) % MCV 94.6 D (80-100) fL MCH 31.2 (27.0-34.0) pg MCHC 33.0 (33.0-35.0) g/dL Plt Count 164 (150-450) 10^3/uL Blood Type A NEGATIVE Gel Antibody Screen Negative Rhogam Indicated Yes, baby rh pos H Med Orders - Current: Current Medications Acetaminophen (Tylenol) 650 mg PO Q6H PRN PRN Reason: Pain Last Admin: 11/07/18 08:49 Dose: 650 mg Acetaminophen (Tylenol) 650 mg PO Q4H PRN PRN Reason: Pain (Mild 1-3) and fever Acetaminophen (Tylenol) 650 mg PO Q6H PRN PRN Reason: mild pain or fever Benzocaine/Menthol (Dermoplast Pain Relief [place]) 0 gm TOP Q4H PRN PRN Reason: Perineal comfort measures Carboprost Tromethamine (Hemabate Ds) 250 mcg IM ASDIRECTED PRN PRN Reason: HEMORRHAGE Carboprost Tromethamine (Hemabate Ds) 250 mcg IM ASDIRECTED PRN PRN Reason: Excessive vaginal bleeding Docusate Sodium (Colace) 100 mg PO BID PRN PRN Reason: Constipation Last Admin: 11/08/18 08:39 Dose: 100 mg Lactated Ringer's (Ringers, Lactated) 1,000 mls @ 125 mls/hr IV ASDIRECTED JOAQUIN Last Admin: 11/06/18 13:02 Dose: 125 mls/hr Oxytocin/Sodium Chloride (Pitocin In Ns 30 Unit/500 Ml) 30 unit in 500 mls @ 2 mls/hr IV TITRATE JOAQUIN; Protocol Last Titration: 11/06/18 19:39 Dose: 125 mls/hr Tranexamic Acid 1,000 mg/ (Sodium Chloride) 110 mls @ 660 mls/hr IV ONETIME PRN PRN Reason: Bleeding Tranexamic Acid 1,000 mg/ (Sodium Chloride) 110 mls @ 660 mls/hr IV ONETIME PRN PRN Reason: Bleeding Ibuprofen (Motrin) 800 mg PO Q8H PRN PRN Reason: Mild Pain or Fever Last Admin: 11/08/18 08:39 Dose: 800 mg Lidocaine HCl (Xylocaine-Mpf 1%) 30 ml INJECT ASDIRECTED PRN PRN Reason: Perineal Repair Last Admin: 11/06/18 18:50 Dose: 30 ml Methylergonovine Maleate (Methergine) 0.2 mg IM ASDIRECTED PRN PRN Reason: Hemorrhage Misoprostol (Cytotec) 800 mcg RECTAL ASDIRECTED PRN PRN Reason: Hemorrhage Misoprostol (Cytotec) 800 mcg RECTAL ONETIME PRN PRN Reason: Hemorrhage Ondansetron HCl (Zofran) 4 mg IV Q4H PRN PRN Reason: Nausea/Vomiting Oxytocin (Pitocin) 10 unit IM ONETIME PRN PRN Reason: Bleeding Pantoprazole Sodium (Protonix) 40 mg PO ACBREAKFAST [facility] Last Admin: 11/08/18 07:42 Dose: 40 mg Prenat Multivit/Mounter Clarinets/Iron/Folic Ac ( Plus Iron) 1 each PO DAILY [facility] Last Admin: 11/08/18 08:38 Dose: 1 each Simethicone (Simethicone) 80 mg PO Q4H PRN PRN Reason: Gas Sodium Chloride (Saline Flush) 10 ml FLUSH ASDIRECTED PRN PRN Reason: Keep Vein Open Sodium Chloride (Saline Flush) 10 ml FLUSH ASDIRECTED PRN PRN Reason: Keep Vein Open Zolpidem Tartrate (Ambien) 5 mg PO BEDTIME PRN PRN Reason: Insomnia Discontinued Medications Epinephrine HCl (Adrenalin) Confirm Administered Dose 1 mg .ROUTE .STK-MED ONE Stop: 11/06/18 07:33 Last Admin: 11/06/18 18:09 Dose: Not Given Epinephrine HCl (Adrenalin) 0.1 mg .XX .STK-MED ONE Stop: 11/06/18 07:28 Epinephrine HCl (Adrenalin) Confirm Administered Dose 1 mg .ROUTE .STK-MED ONE Stop: 11/06/18 12:46 Last Admin: 11/06/18 18:09 Dose: Not Given Epinephrine HCl (Adrenalin) 0.1 mg IV .STK-MED ONE Stop: 11/07/18 13:29 Fentanyl (Sublimaze) Confirm Administered Dose 100 mcg .ROUTE .STK-MED ONE Stop: 11/06/18 07:32 Last Admin: 11/06/18 18:09 Dose: Not Given Fentanyl (Sublimaze) 30 mcg [place]HE[place] .STK-MED ONE Stop: 11/06/18 07:28 Fentanyl (Sublimaze) Confirm Administered Dose 100 mcg .ROUTE .STK-MED ONE Stop: 11/06/18 12:46 Last Admin: 11/06/18 18:09 Dose: Not Given Fentanyl (Sublimaze) 20 mcg IV .STK-MED ONE Stop: 11/07/18 13:29 Hydroxyzine HCl (Atarax) 100 mg PO ONETIME STA Stop: 11/05/18 23:05 Last Admin: 11/05/18 23:35 Dose: 100 mg Lactated Ringer's (Ringers, Lactated) 1,000 mls @ 125 mls/hr IV ASDIRECTED JOAQUIN Last Admin: 11/06/18 07:34 Dose: 125 mls/hr Measles/Mumps/Rubella Vaccine Live (M-M-R Ii Vaccine) 0.5 ml SUBCUT .ONCE ONE Stop: 11/07/18 07:16 Last Admin: 11/07/18 14:03 Dose: 0.5 ml Nalbuphine HCl (Nubain) 20 mg IM ONETIME PRN PRN Reason: Pain Last Admin: 11/06/18 03:44 Dose: 20 mg Sufentanil Citrate (Sufenta) Confirm Administered Dose 50 mcg .ROUTE .STK-MED ONE Stop: 11/06/18 07:33 Last Admin: 11/06/18 18:09 Dose: Not Given Sufentanil Citrate (Sufenta) 25 mcg ITHECAL .STK-MED ONE Stop: 11/06/18 07:28 Sufentanil Citrate (Sufenta) Confirm Administered Dose 50 mcg .ROUTE .STK-MED ONE Stop: 11/06/18 12:47 Last Admin: 11/06/18 18:10 Dose: Not Given Sufentanil Citrate (Sufenta) 25 mcg IV .STK-MED ONE Stop: 11/07/18 13:29
== END 2018-11-08 12:45 | disposition home or self-care (01) | DRG 560 ==
LOC: DL.OBCHECK 21:00 → DL.MS 23:17 → UNDOADMOB 23:17 → DL.OB 23:18 → DL.MS 23:18 → DL.OB 11-06 07:26 → OBSVTOIN 11-06 18:30
PROVIDERS: ADMIT Family Medicine; ATTEND Family Medicine
PROC: 10D07Z6 Extraction of Products of Conception, Vacuum, Via Natural or Artificial Opening (ICD-10-PCS; principal; 2018-11-06)
PROC: 0KQM0ZZ Repair Perineum Muscle, Open Approach (ICD-10-PCS; 2018-11-06)
PROC: 10907ZC Drainage of Amniotic Fluid, Therapeutic from Products of Conception, Via Natural or Artificial Opening (ICD-10-PCS; 2018-11-06)
PROC: 4A1HXCZ Monitoring of Products of Conception, Cardiac Rate, External Approach (ICD-10-PCS; 2018-11-06)
PROC: 3E0R3BZ Introduction of Anesthetic Agent into Spinal Canal, Percutaneous Approach (ICD-10-PCS; 2018-11-06)
PROC: 00HU33Z Insertion of Infusion Device into Spinal Canal, Percutaneous Approach (ICD-10-PCS; 2018-11-06)
DX: O48.0 Post-term pregnancy (principal); O99.214 Obesity complicating childbirth; E66.9 Obesity, unspecified; O99.52 Diseases of the respiratory system complicating childbirth; J45.909 Unspecified asthma, uncomplicated; O99.344 Other mental disorders complicating childbirth; F41.9 Anxiety disorder, unspecified; F32.9 Major depressive disorder, single episode, unspecified; O70.1 Second degree perineal laceration during delivery; Z3A.40 40 weeks gestation of pregnancy; Z23 Encounter for immunization; Z37.0 Single live birth; Z90.49 Acquired absence of other specified parts of digestive tract
CPT/HCPCS: 36415; 59409; 81001; 85025; 85027; 85461; 86850; 86900; 86901; 90707; A9270-GY; G0010; J0171; J2001; J2300; J2590; J2790; J3010; J7120

== ENCOUNTER 2020-11-27 08:50 | Inpatient (IN) | payer BC ==
[2020-11-27] MEDS ORDERED: Sodium Chloride 0.9% 10 ML Syringe FLUSH PRN (10:32)
[2020-11-27] MEDS ORDERED: Acetaminophen 325 MG Tab PO PRN ×2 (10:51→11:02)
[2020-11-27] MEDS ORDERED: Misoprostol 50 MCG (1/2 of 100 MCG) Tab PO PRN (10:51)
[2020-11-27] MEDS ORDERED: Misoprostol 25 MCG (1/4 of 100 MCG) Tab PO PRN (10:51)
[2020-11-27] MEDS ORDERED: Lidocaine 1% 30 ML SDV INJECT PRN (11:02)
[2020-11-27] MEDS ORDERED: Lactated Ringers 1,000 ML IV ONE (11:02)
[2020-11-27] MEDS ORDERED: Ondansetron 4 MG/2 ML SDV IVPUSH PRN (11:02)
[2020-11-27] MEDS ORDERED: Carboprost Tromethamine 250 MCG/1 ML Amp IM PRN (11:02)
[2020-11-27] MEDS ORDERED: Methylergonovine 0.2 MG/1 ML Amp IM PRN (11:02)
[2020-11-27] MEDS ORDERED: Misoprostol 400 MCG (4 X 100 MCG TAB) RECTAL PRN (11:02)
[2020-11-27] MEDS ORDERED: Tranexamic Acid 1,000 MG in Sodium Chloride 0.9% 100 ML IV PRN (11:02)
[2020-11-27] MEDS ORDERED: Oxytocin/Normal Saline 30 UNIT/500 ML BAG IV SCH (11:15)
[2020-11-27] MEDS: FLUoxetine 10 MG Cap PO SCH (15:29)
--- NOTE | 2020-11-27 18:28 | HP ---
PRIMARY OBSTETRICAL PROVIDER: Anna Castro MD CC: Irregular contractions, induction of labor HPI: Wicho Mota is a 30-year-old female G3, P1-0-1-1 at 40 weeks 2 days gestation (based on LMP of 02/19/2020 and confirmed on ultrasound on 07/06/2020) who presents to Labor and Delivery with irregular contractions following loss of her mucus plug. She reports that she lost her mucus plug overnight at approximately 2 a.m. Her contractions started thereafter and have been irregular, occurring every 2 to 5 minutes. She states that her contractions are ranked at a scale of 3/10 pain at its worst. She reports an episode of vomiting yesterday, which she says is very common for her. She has chronic nausea. She also reports a mild headache. She denies any fever, chills, chest pain, shortness of breath, or leg swelling. She reports her first labor lasted over 24 hours. Denies complications. ADMITTING DIAGNOSES: 1. 40 weeks and 2/7 days gestation, last menstrual period 02/19/2020. 2. G3, P1-0-1-1. 3. Blood group A negative, antibody screen negative. 4. Maternal anemia of third trimester, resolved. 5. COVID-19 affecting second trimester. 6. Rubella immune. 7. Group B Streptococcus negative. 8. SSRI use in , Prozac 40 mg daily. 9. Hyperemesis gravidarum. OBSTETRIC HISTORY: G3, P1-0-1-1. 1. 04/12/2014, 4 weeks 0 days, spontaneous . 2. 11/06/2018, 40 weeks 2 days, term delivery, female born at 6 pounds 3.8 ounces, requiring vacuum assistance. 3. Current . LABORATORY DATA: 1. Blood group type is A-negative with negative antibody screen. 2. Serology (RPR/syphilis) is nonreactive. 3. Rubella immune. 4. Hepatitis B surface antigen negative. 5. Hepatitis C nonreactive. 6. HIV negative from prior labs. 7. Gonorrhea and chlamydia are negative. 8. GBS status negative. PAST MEDICAL HISTORY: 1. Chronic bilateral low back pain with left-sided sciatica. 2. History of chicken pox. 3. Asthma. 4. Herniated lumbar disk. 5. Degenerative disk disease, lumbar. 6. Myofascial pain. 7. Anxiety. 8. Obesity with a BMI of 35.0 to 39.0. PAST SURGICAL HISTORY: 1. Cholecystectomy. 2. [place]/baby teeth extraction. 3. Spine, lumbar laminectomy and microdiskectomy, left, 2018, L5/S1. 4. New nerve root injection, lumbar/sacral, single, 2019. PRIOR TO ADMISSION MEDICATIONS: 1. Fluoxetine 40 mg daily. 2. Protonix 40 mg daily. 3. vitamin with iron daily. 4. Iron 325 mg daily. 5. Albuterol p.r.n. 6. Singulair 10 mg. ALLERGIES: No known allergies to medications. SOCIAL HISTORY: Denies tobacco, alcohol, or drug use during . Lives in [place], [place]. FAMILY HISTORY: Noncontributory. Negative family history of blood clot disorders, anesthesia problems, or bleeding problems. REVIEW OF SYSTEMS: See HPI for relevant information. PHYSICAL EXAMINATION: Admission Vitals: T 98.8 F, BP 112/77, P 100, and respirating on room air. General Appearance: Alert, well appearing, in no apparent distress. Lungs: Clear to auscultation. No wheezes, rales, or rhonchi. Symmetric air entry. Heart: Regular rate and rhythm. No murmurs noted. Abdomen: Gravid abdomen. Nontender. FHT: Category 1. Moderate variability with a baseline at 130s, positive for accelerations, negative for decelerations. [place]: Irregular contractions occurring every 2 to 5 minutes. Pelvic: 1.5-2 cm dilated, 50% effaced, -3 station. Bag intact. Extremities: No tenderness and no edema. Skin: Normal coloration and turgor, no rashes. ASSESSMENT AND PLAN: Wicho Mota is a 30-year-old G3, P1-0-1-1 at 40 weeks 2 days gestation who is admitted for induction of labor. We will place Cytotec at 11:20, 50 mcg. We will continue to monitor heart rate and contractions and reassess after 4 to 6 hours. If not experiencing tachysystole, may consider adding 25 mcg Cytotec after 4 hours. We will continue current obstetrical admission cares. Maternal well-being: Good. well-being: heart tracing category 1. We will consider administering RhoGAM after receiving results of cord blood after delivery if Rh positive. The patient plans on using intrathecal for pain management as labor progresses. No indication for penicillin at this time due to group B Streptococcus negative status. The patient verbalized understanding and is in agreement with plan. Patient discussed with Dr. Desai. RAZA SweteII MODL /[id number] MTDD
[2020-11-27] MEDS: Amoxicillin/Clavulanate K 875-125 MG Tab PO SCH ×2 (19:57→22:08)
[2020-11-27] MEDS: Lactated Ringers 1,000 ML IV SCH (20:58)
[2020-11-27] MEDS: Oxytocin/Normal Saline 30 UNIT/500 ML BAG IV SCH (21:00)
[2020-11-27] MEDS ORDERED: Nalbuphine 10 MG/1 ML Vial IM ONE (21:24)
--- NOTE | 2020-11-27 21:38 | PCM.PNLD ---
Labor Progress Note - VS & Meds Vital Signs: Last Vital Signs Temp 98 F 11/27/20 19:15 Pulse 88 11/27/20 19:15 Resp 20 11/27/20 17:07 BP 105/72 11/27/20 19:15 Pulse Ox Active Medications: Current Medications Acetaminophen (Acetaminophen 325 Mg Tab) 650 mg PO Q4H PRN PRN Reason: Pain (Mild 1-3) and fever Amoxicillin/Clavulanate Potassium (Amoxicillin/Clavulanate K 875-125 Mg Tab) 1 tab PO Q12HR JOAQUIN Stop: 11/28/20 08:00 Last Admin: 11/27/20 19:57 Dose: 1 tab Documented by: Carboprost Tromethamine (Carboprost Tromethamine 250 Mcg/1 Ml Amp) 250 mcg IM ASDIRECTED PRN PRN Reason: HEMORRHAGE Ferrous Sulfate (Ferrous Sulfate 325 Mg Tab) 325 mg PO WITHBREAKFAST JOAQUIN Fluoxetine HCl (Fluoxetine 10 Mg Cap) 40 mg PO DAILY [facility] Last Admin: 11/27/20 15:29 Dose: 40 mg Documented by: Lactated Ringer's (Ringers, Lactated) 1,000 mls @ 125 mls/hr IV ASDIRECTED JOAQUIN Last Admin: 11/27/20 20:58 Dose: 125 mls/hr Documented by: Oxytocin/Sodium Chloride (Pitocin In Ns 30 Unit/500 Ml) 30 unit in 500 mls @ 2 mls/hr IV TITRATE [facility]; Protocol Last Admin: 11/27/20 21:00 Dose: 2 munits/min, 2 mls/hr Documented by: Tranexamic Acid 1,000 mg/ (Sodium Chloride) 110 mls @ 660 mls/hr IV ONETIME PRN PRN Reason: Bleeding Oxytocin/Sodium Chloride (Pitocin In Ns 30 Unit/500 Ml) 30 unit in 500 mls @ 2 mls/hr IV TITRATE [facility]; Protocol Lidocaine HCl (Lidocaine 1% 30 Ml Sdv) 30 ml INJECT ASDIRECTED PRN PRN Reason: Perineal Repair Methylergonovine Maleate (Methylergonovine 0.2 Mg/1 Ml Amp) 0.2 mg IM ASDIRECTED PRN PRN Reason: Hemorrhage Misoprostol (Misoprostol 50 Mcg (1/2 Of 100 Mcg) Tab) 50 mcg PO Q4H PRN PRN Reason: cervical ripening Last Admin: 11/27/20 11:20 Dose: 50 mcg Documented by: Misoprostol (Misoprostol 25 Mcg (1/4 Of 100 Mcg) Tab) 25 mcg PO Q4H PRN PRN Reason: cervical ripening Last Admin: 11/27/20 16:15 Dose: 25 mcg Documented by: Misoprostol (Misoprostol 400 Mcg (4 X 100 Mcg Tab)) 800 mcg RECTAL ASDIRECTED PRN PRN Reason: Hemorrhage Ondansetron HCl (Ondansetron 4 Mg/2 Ml Sdv) 4 mg IVPUSH Q4H PRN PRN Reason: Nausea/Vomiting Pantoprazole Sodium (Pantoprazole 40 Mg Tab.Cr) 40 mg PO ACBREAKFAST JOAQUIN Prenat Multivit/Quill Cleaning Machine Operator/Iron/Folic Ac ( Multivitamin With Calcium/Folic Acid/Iron Tab) 1 each PO DAILY JOAQUIN Sodium Chloride (Sodium Chloride 0.9% 10 Ml Syringe) 10 ml FLUSH ASDIRECTED PRN PRN Reason: Keep Vein Open Discontinued Medications Lactated Ringer's (Ringers, Lactated) 1,000 mls @ 999 mls/hr IV BOLUS ONE Stop: 11/27/20 12:02 Nalbuphine HCl (Nalbuphine 10 Mg/1 Ml Vial) 20 mg IM ONETIME ONE Stop: 11/27/20 21:25 - Uterine Contractions Uterine Monitoring Mode: External [place] Contraction Frequency (min): 2-4 Contraction Duration (sec): 70-90 Contraction Intensity: Mild Uterine Resting Tone: Soft - Monitoring Monitor Mode: Spiral Electrode Heart Rate (FHR) Baseline: 140 Heart Rate (FHR) Variability: Moderate (6-25 bmp) Accelerations: Present, 15x15 Decelerations: None Strip Review: Category I - Vaginal Exam Dilation (cm): 3.5 Effacement (Percent): 80 Station: -2 Cervical Position: Midposition Sterile Vaginal Exam Performed By: Bassem Cruz - Labor Progress (Free Text) Labor Progress: Patient tolerating contractions well. Contractions every 2-3 minutes apart. Using Nitrox to help with contraction pain. Pitocin at 3 mu/min. AROM- Meconium stained fluid FSE placed without difficulty.
[2020-11-28] MEDS ORDERED: EPINEPHrine 1 MG/1 ML Amp ONE ×2 (00:14→00:53)
[2020-11-28] MEDS ORDERED: fentaNYL 100 MCG/2 ML SDV ONE (00:14)
[2020-11-28] MEDS: Lactated Ringers 1,000 ML IV SCH (00:29)
[2020-11-28] MEDS ORDERED: fentaNYL 100 MCG/2 ML SDV ITHECAL ONE (00:53)
--- NOTE | 2020-11-28 00:54 | PCM.PRNOTE ---
- Free Text/Narrative Note: Requested to provide analgesia to full term patient in severe pain. Upon entering the room, patient is sitting on edge of bed complaining of severe abdominal/pelvic pain and discomfort. Procedure was discussed with patient including adverse outcomes and expectations. Pt consented to analgesia, SAB/IT. Pt placed into a proper sitting position. Landmarks for SAB/IT were identified and marked. Hands were washed and appropriate PPE was applied. Back was prepped with betadine x3. A sterile, transparent, fenestrated drape was applied. Excess betadine was removed. Using 3 mL of a 1% lidocaine solution, a skin wheel was placed at the L2/L3 interspace. A 24 ga (4 inch) [place] spinal needle was inserted until positive for CSF. Negative for heme or paresthesias. Injected fentanyl 30 mcg, sufentanil 25 mcg, and 7.5 mg of a 0.75% bupivacaine solution with an epi wash. Pt was placed left lateral tilt position for approximately 20 minutes. There were zero complications or adverse outcomes. Will continue to monitor. Procedure Date & Time: 11/28/20 [id number]
[2020-11-28] MEDS ORDERED: Simethicone 80 MG Tab.Chew PO PRN (03:12)
[2020-11-28] MEDS ORDERED: Benzocaine/Menthol 20%-0.5% Spray 56 GM Canister TOP PRN (03:12)
[2020-11-28] MEDS ORDERED: Zolpidem 5 MG Tab PO PRN (03:12)
--- NOTE | 2020-11-28 04:49 | PCM.DEL ---
L & D Note - General Info Date of Service: 11/28/20 (Time of 0408) Mother's Due Date: 11/25/20 (40 and 3/7 weeks gestation) - Delivery Note Labor: Augmented by ARM, Augmented by Oxytocin Cervical Ripening Method: Misoprostil Delivery Outcome: Livebirth Infant Delivery Method: Spontaneous Vaginal Delivery-Single Delivery Mode: Spontaneous Presentation: Left Occiput Anterior (TESSIE) Nuchal Cord: None Anesthesia Type: Intrathecal, Local, Nitrous Oxide Anesthetic: Lidocaine (Xylocaine) 1% Plain Local Anesthetic Volume: Other (10 ml) Amniotic Fluid Description: Meconium Stained Episiotomy Type: None Laceration: 2nd Degree, Perineal (Right periurethral abrasion) Suture type: Vicryl Suture size: 2-0 Placenta: Intact, Spontaneous Cord: 3 Vessels Estimated Blood Loss: 100 Resuscitation Needed: No : Bulb Syringe, Stimulated, Warmed, [place] Used, Warmer Used Score 1 min: 8 Score 5 min: 9 Second Stage Interventions: Reports: Second Nurse Assessed Progress of Descent, Second Nurse Reviewed Contraction Pattern, Second Nurse Reviewed Heart Tones, Encouragement Given, Pushing Effectively Delivery Comments (Free Text/Narrative):: , TESSIE, viable male , over intact perineum Cord 3 vessel, not around the neck Placenta delivered by simple expression, intact Labia, vagina, and cervix inspected and intact Second degree midline perineal laceration, repaired with 2-0 vicryl suture without difficulty 10 ml 1% lidocaine without epinephrine used for anesthesia Intrathecal x1 was given along with nitrox gas for pain control Mother and doing well with no complications weighed 7 lb 1 oz (3205 g), length 18.5 inches, apgars are 8 and 9 at one and 5 minutes respectively - General Info Date of Service: 11/28/20 () - Patient Data Vitals - Most Recent: Last Vital Signs Temp 97.7 F 11/27/20 21:16 Pulse 84 11/28/20 02:15 Resp 20 11/27/20 17:07 BP 115/69 11/28/20 02:15 Pulse Ox 100 11/28/20 02:15 Weight - Most Recent: 249 lb Lab Results Last 24 Hours: Laboratory Results - last 24 hr 11/27/20 11/27/20 Range/Units 11:00 11:23 WBC 10.6 H (5.0-10.0) 10^3/uL RBC 4.52 (4.2-5.4) 10^6/uL Hgb 13.5 D (12.0-16.0) g/dL Hct 40.0 (37.0-47.0) % MCV 88.5 (80-100) fL MCH 29.9 (27.0-34.0) pg MCHC 33.8 (33.0-35.0) g/dL Plt Count 198 (150-450) 10^3/uL SARS-CoV-2 RNA ([place]) Negative (NEGATIVE) Med Orders - Current: Current Medications Acetaminophen (Acetaminophen 325 Mg Tab) 650 mg PO Q4H PRN PRN Reason: Pain (Mild 1-3) and fever Amoxicillin/Clavulanate Potassium (Amoxicillin/Clavulanate K 875-125 Mg Tab) 1 tab PO Q12HR [facility] Stop: 11/28/20 08:00 Last Admin: 11/27/20 22:08 Dose: Not Given Documented by: Benzocaine/Menthol (Benzocaine/Menthol 20%-0.5% [place] 56 Gm Canister) 0 gm TOP Q4H PRN PRN Reason: Perineal comfort measures Carboprost Tromethamine (Carboprost Tromethamine 250 Mcg/1 Ml Amp) 250 mcg IM ASDIRECTED PRN PRN Reason: HEMORRHAGE Docusate Sodium (Docusate Sodium 100 Mg Cap) 100 mg PO BID PRN PRN Reason: Constipation Ferrous Sulfate (Ferrous Sulfate 325 Mg Tab) 325 mg PO BIDMEALS [facility] Fluoxetine HCl (Fluoxetine 10 Mg Cap) 40 mg PO DAILY [facility] Last Admin: 11/27/20 15:29 Dose: 40 mg Documented by: Lactated Ringer's (Ringers, Lactated) 1,000 mls @ 125 mls/hr IV ASDIRECTED [facility] Last Admin: 11/28/20 00:29 Dose: 125 mls/hr Documented by: Oxytocin/Sodium Chloride (Pitocin In Ns 30 Unit/500 Ml) 30 unit in 500 mls @ 2 mls/hr IV TITRATE JOAQUIN; Protocol Last Titration: 11/28/20 01:28 Dose: 8 munits/min, 8 mls/hr Documented by: Tranexamic Acid 1,000 mg/ (Sodium Chloride) 110 mls @ 660 mls/hr IV ONETIME PRN PRN Reason: Bleeding Oxytocin/Sodium Chloride (Pitocin In Ns 30 Unit/500 Ml) 30 unit in 500 mls @ 2 mls/hr IV TITRATE JOAQUIN; Protocol Ibuprofen (Ibuprofen 800 Mg Tab) 800 mg PO Q8H PRN PRN Reason: Pain Lidocaine HCl (Lidocaine 1% 30 Ml Sdv) 30 ml INJECT ASDIRECTED PRN PRN Reason: Perineal Repair Methylergonovine Maleate (Methylergonovine 0.2 Mg/1 Ml Amp) 0.2 mg IM ASDIRECTED PRN PRN Reason: Hemorrhage Misoprostol (Misoprostol 400 Mcg (4 X 100 Mcg Tab)) 800 mcg RECTAL ASDIRECTED PRN PRN Reason: Hemorrhage Ondansetron HCl (Ondansetron 4 Mg/2 Ml Sdv) 4 mg IVPUSH Q4H PRN PRN Reason: Nausea/Vomiting Last Admin: 11/27/20 23:50 Dose: 4 mg Documented by: Pantoprazole Sodium (Pantoprazole 40 Mg Tab.Cr) 40 mg PO ACBREAKFAST [facility] Prenat Multivit/[place]/Iron/Folic Ac ( Multivitamin With Calcium/Folic Acid/Iron Tab) 1 each PO DAILY [facility] Simethicone (Simethicone 80 Mg Tab.Chew) 80 mg PO Q4H PRN PRN Reason: Gas Sodium Chloride (Sodium Chloride 0.9% 10 Ml Syringe) 10 ml FLUSH ASDIRECTED PRN PRN Reason: Keep Vein Open Zolpidem Tartrate (Zolpidem 5 Mg Tab) 5 mg PO BEDTIME PRN PRN Reason: Insomnia Discontinued Medications Epinephrine HCl (Epinephrine 1 Mg/1 Ml Amp) Confirm Administered Dose 1 mg .ROUTE .STK-MED ONE Stop: 11/28/20 00:15 Fentanyl (Fentanyl 100 Mcg/2 Ml Sdv) Confirm Administered Dose 100 mcg .ROUTE .STK-MED ONE Stop: 11/28/20 00:15 Ferrous Sulfate (Ferrous Sulfate 325 Mg Tab) 325 mg PO WITHBREAKFAST [facility] Lactated Ringer's (Ringers, Lactated) 1,000 mls @ 999 mls/hr IV BOLUS ONE Stop: 11/27/20 12:02 Last Admin: 11/28/20 00:10 Dose: 999 mls/hr Documented by: Misoprostol (Misoprostol 50 Mcg (1/2 Of 100 Mcg) Tab) 50 mcg PO Q4H PRN PRN Reason: cervical ripening Last Admin: 11/27/20 11:20 Dose: 50 mcg Documented by: Misoprostol (Misoprostol 25 Mcg (1/4 Of 100 Mcg) Tab) 25 mcg PO Q4H PRN PRN Reason: cervical ripening Last Admin: 11/27/20 16:15 Dose: 25 mcg Documented by: Nalbuphine HCl (Nalbuphine 10 Mg/1 Ml Vial) 20 mg IM ONETIME ONE Stop: 11/27/20 21:25 Last Admin: 11/27/20 21:33 Dose: 20 mg Documented by: Sufentanil Citrate (Sufentanil 50 Mcg/1 Ml Amp) Confirm Administered Dose 50 mcg .ROUTE .STK-MED ONE Stop: 11/28/20 00:16 - Problem List Review Problem List Initiated/Reviewed/Updated: Yes - My Orders Last 24 Hours: My Active Orders 11/27/20 10:32 Peripheral IV Care [RC] Sodium Chloride 0.9% [Saline Flush] 10 ml FLUSH ASDIRECTED PRN Peripheral IV Insertion Adult [OM.PC] Routine 11/27/20 10:52 Patient Status [ADT] Routine Notify Provider Vital Signs OB [RC] ASDIRECTED Vaginal Exam [RC] PRN Vital Signs [RC] 11/27/20 11:00 Lactated Ringers [Ringers, Lactated] 1,000 ml IV ASDIRECTED Oxytocin/Normal Saline [Pitocin in NS 30 UNIT/500 ML] 30 unit in 500 ml IV TITRATE 11/27/20 11:02 Notify Provider Vital Signs OB [RC] .PRN Pump Management, Intrathecal [RC] ASDIRECTED Acetaminophen [TylenoL] 650 mg PO Q4H PRN Carboprost Tromethamine [Hemabate DS] 250 mcg IM ASDIRECTED PRN Lidocaine 1% [Xylocaine-MPF 1%] 30 ml INJECT ASDIRECTED PRN Methylergonovine [Methergine] 0.2 mg IM ASDIRECTED PRN Ondansetron [Zofran] 4 mg IVPUSH Q4H PRN Tranexamic Acid [Cyklokapron] 1,000 mg Sodium Chloride 0.9% [Normal Saline] 100 ml IV ONETIME miSOPROStoL [Cytotec] 800 mcg RECTAL ASDIRECTED PRN Saline Lock Insert [OM.PC] Routine Resuscitation Status Routine 11/27/20 11:15 Oxytocin/Normal Saline [Pitocin in NS 30 UNIT/500 ML] 30 unit in 500 ml IV TITRATE 11/27/20 12:00 FLUoxetine [PROzac] 40 mg PO DAILY 11/27/20 18:00 Amoxicillin/Clavulanate K [Augmentin 875 MG/125 MG] 1 tab PO Q12HR 11/27/20 20:50 Nitrous Oxide Delivery [RC] ASDIRECTED 11/28/20 06:00 Pantoprazole [ProTONIX] 40 mg PO ACBREAKFAST 11/28/20 09:00 Vit with Ca/FA/Iron [ Plus Iron] 1 each PO DAILY
[2020-11-28] MEDS: Oxytocin/Normal Saline 30 UNIT/500 ML BAG IV SCH (05:30)
[2020-11-28] MEDS ORDERED: Mineral Oil 30 ML UD Cup PO ONE (05:37)
--- NOTE | 2020-11-28 05:45 | PN ---
DATE: 11/27/2020 SUBJECTIVE: The patient has been experiencing increased pelvic pressure. She now rates her contraction pain 4/10. She has no other somatic complaints at this time. The first Cytotec 50 mcg was given at 11:20 this morning. The second dose of Cytotec 25 mcg was given at 4:20. The patient also disclosed that she has been on Augmentin 875 b.i.d. for a sinus infection and only has 2 more pills left, she would like a dose this evening and tomorrow morning. She still has mild sinus pressure on her right side. OBJECTIVE: Vital Signs: BP 115/77, P 79, T 98.1 F. General: Alert, no concerning distress. FHT: Category I, baseline 140 with moderate variability, accelerations present, decelerations absent. [place]: Irregular contractions occurring every 2 to 4 minutes. Pelvic: 3 cm, 50%, -3, bag intact. Extremities: Nontender, no concerning edema. ASSESSMENT: 1. 40 weeks 2/7 days' gestation, LMP 02/19/2020. 2. G3, P1-0-1-1. 3. Blood type A negative, antibody screen negative. 4. Maternal anemia, third trimester, resolved. 5. COVID-19 affecting second trimester. 6. Rubella immune. 7. Group B strep negative. 8. Selective serotonin reuptake inhibitor use in , Prozac 40 mg daily. 9. Hyperemesis gravidarum. PLAN: The patient is a 30-year-old, G3, P1-0-1-1 female at 40 weeks 2/7 days' gestation, who presents in for induction of labor. We will continue to monitor heart rate and contraction pattern and we will reassess in [address] Cytotec 25 mcg based upon cervical exam after 4- to 6-hour evaluation. If uterine tachysystole occurs, we will hold off on placing Cytotec. May consider starting Pitocin per protocol after evaluation. We will continue routine cares. Penicillin not indicated due to GBS negative status. Pain is currently managed, no pain meds at this time, but may consider nubain or intrathecal as labor progresses. RAZA SweetII [facility] /[id number] [facility]
[2020-11-28] MEDS ORDERED: Ferrous Sulfate 325 MG Tab PO SCH (08:00)
[2020-11-28] MEDS: Pantoprazole 40 MG Tab.CR PO SCH (08:53)
[2020-11-28] MEDS: Prenatal Multivitamin with Calcium/Folic Acid/Iron Tab PO SCH (08:53)
[2020-11-28] MEDS: Docusate Sodium 100 MG Cap PO PRN (08:54)
[2020-11-28] MEDS: Ibuprofen 800 MG Tab PO PRN ×2 (08:54→18:30)
[2020-11-28] MEDS: Ferrous Sulfate 325 MG Tab PO SCH ×2 (08:55→18:31)
[2020-11-28] MEDS: FLUoxetine 10 MG Cap PO SCH (11:45)
[2020-11-29] MEDS: Pantoprazole 40 MG Tab.CR PO SCH (08:22)
[2020-11-29] MEDS: Ibuprofen 800 MG Tab PO PRN (09:35)
[2020-11-29] MEDS: Ferrous Sulfate 325 MG Tab PO SCH (09:35)
[2020-11-29] MEDS: Docusate Sodium 100 MG Cap PO PRN (09:36)
[2020-11-29] MEDS: FLUoxetine 10 MG Cap PO SCH (09:36)
[2020-11-29] MEDS: Prenatal Multivitamin with Calcium/Folic Acid/Iron Tab PO SCH (09:36)
--- NOTE | 2020-11-29 11:46 | PCM.PNPP ---
- General Info Date of Service: 11/29/20 (PPD # 1 S/P ) Functional Status: Reports: Pain Controlled, Tolerating Diet, Ambulating, Urinating - Review of Systems General: Reports: No Symptoms HEENT: Reports: No Symptoms Pulmonary: Reports: No Symptoms Cardiovascular: Reports: No Symptoms Gastrointestinal: Reports: No Symptoms Genitourinary: Reports: No Symptoms Musculoskeletal: Reports: No Symptoms Skin: Reports: No Symptoms Neurological: Reports: No Symptoms Psychiatric: Reports: No Symptoms - General Info Date of Service: 11/29/20 (PPD # 1 S/P ) - Patient Data Vital Signs - Most Recent: Last Vital Signs Temp 97.1 F 11/29/20 08:00 Pulse 86 11/29/20 08:00 Resp 16 11/29/20 08:00 BP 98/73 11/29/20 08:00 Pulse Ox 100 11/28/20 02:15 Weight - Most Recent: 249 lb Lab Results - Last 24 Hours: Laboratory Results - last 24 hr 11/29/20 Range/Units 05:45 WBC 9.4 (5.0-10.0) 10^3/uL RBC 3.94 L (4.2-5.4) 10^6/uL Hgb 11.6 L D (12.0-16.0) g/dL Hct 36.3 L (37.0-47.0) % MCV 92.1 D (80-100) fL MCH 29.4 (27.0-34.0) pg MCHC 32.0 L (33.0-35.0) g/dL Plt Count 166 (150-450) 10^3/uL Med Orders - Current: Current Medications Acetaminophen (Acetaminophen 325 Mg Tab) 650 mg PO Q4H PRN PRN Reason: Pain (Mild 1-3) and fever Benzocaine/Menthol (Benzocaine/Menthol 20%-0.5% [place] 56 Gm Canister) 0 gm TOP Q4H PRN PRN Reason: Perineal comfort measures Last Admin: 11/28/20 09:04 Dose: 1 spray Documented by: Carboprost Tromethamine (Carboprost Tromethamine 250 Mcg/1 Ml Amp) 250 mcg IM ASDIRECTED PRN PRN Reason: HEMORRHAGE Docusate Sodium (Docusate Sodium 100 Mg Cap) 100 mg PO BID PRN PRN Reason: Constipation Last Admin: 11/29/20 09:36 Dose: 100 mg Documented by: Ferrous Sulfate (Ferrous Sulfate 325 Mg Tab) 325 mg PO BIDMEALS [facility] Last Admin: 11/29/20 09:35 Dose: 325 mg Documented by: Fluoxetine HCl (Fluoxetine 10 Mg Cap) 40 mg PO DAILY [facility] Last Admin: 11/29/20 09:36 Dose: 40 mg Documented by: Lactated Ringer's (Ringers, Lactated) 1,000 mls @ 125 mls/hr IV ASDIRECTED [facility] Last Admin: 11/28/20 00:29 Dose: 125 mls/hr Documented by: Oxytocin/Sodium Chloride (Pitocin In Ns 30 Unit/500 Ml) 30 unit in 500 mls @ 2 mls/hr IV TITRATE [facility]; Protocol Last Titration: 11/28/20 08:30 Dose: 0 munits/min, 0 mls/hr Documented by: Tranexamic Acid 1,000 mg/ (Sodium Chloride) 110 mls @ 660 mls/hr IV ONETIME PRN PRN Reason: Bleeding Oxytocin/Sodium Chloride (Pitocin In Ns 30 Unit/500 Ml) 30 unit in 500 mls @ 2 mls/hr IV TITRATE [facility]; Protocol Ibuprofen (Ibuprofen 800 Mg Tab) 800 mg PO Q8H PRN PRN Reason: Pain Last Admin: 11/29/20 09:35 Dose: 800 mg Documented by: Lidocaine HCl (Lidocaine 1% 30 Ml Sdv) 30 ml INJECT ASDIRECTED PRN PRN Reason: Perineal Repair Last Admin: 11/28/20 04:40 Dose: 30 ml Documented by: Methylergonovine Maleate (Methylergonovine 0.2 Mg/1 Ml Amp) 0.2 mg IM ASDIRECTED PRN PRN Reason: Hemorrhage Misoprostol (Misoprostol 400 Mcg (4 X 100 Mcg Tab)) 800 mcg RECTAL ASDIRECTED PRN PRN Reason: Hemorrhage Ondansetron HCl (Ondansetron 4 Mg/2 Ml Sdv) 4 mg IVPUSH Q4H PRN PRN Reason: Nausea/Vomiting Last Admin: 11/27/20 23:50 Dose: 4 mg Documented by: Pantoprazole Sodium (Pantoprazole 40 Mg Tab.Cr) 40 mg PO ACBREAKFAST [facility] Last Admin: 11/29/20 08:22 Dose: 40 mg Documented by: Prenat Multivit/[place]/Iron/Folic Ac ( Multivitamin With Calcium/Folic Acid/Iron Tab) 1 each PO DAILY [facility] Last Admin: 11/29/20 09:36 Dose: 1 each Documented by: Simethicone (Simethicone 80 Mg Tab.Chew) 80 mg PO Q4H PRN PRN Reason: Gas Sodium Chloride (Sodium Chloride 0.9% 10 Ml Syringe) 10 ml FLUSH ASDIRECTED PRN PRN Reason: Keep Vein Open Zolpidem Tartrate (Zolpidem 5 Mg Tab) 5 mg PO BEDTIME PRN PRN Reason: Insomnia Discontinued Medications Amoxicillin/Clavulanate Potassium (Amoxicillin/Clavulanate K 875-125 Mg Tab) 1 tab PO Q12HR [facility] Stop: 11/28/20 08:00 Last Admin: 11/27/20 22:08 Dose: Not Given Documented by: Epinephrine HCl (Epinephrine 1 Mg/1 Ml Amp) Confirm Administered Dose 1 mg .ROUTE .STK-MED ONE Stop: 11/28/20 00:15 Last Admin: 11/28/20 06:19 Dose: Not Given Documented by: Fentanyl (Fentanyl 100 Mcg/2 Ml Sdv) Confirm Administered Dose 100 mcg .ROUTE .STK-MED ONE Stop: 11/28/20 00:15 Last Admin: 11/28/20 06:19 Dose: Not Given Documented by: Ferrous Sulfate (Ferrous Sulfate 325 Mg Tab) 325 mg PO WITHBREAKFAST [facility] Lactated Ringer's (Ringers, Lactated) 1,000 mls @ 999 mls/hr IV BOLUS ONE Stop: 11/27/20 12:02 Last Admin: 11/28/20 00:10 Dose: 999 mls/hr Documented by: Mineral Oil (Mineral Oil 30 Ml Ud Cup) 30 ml PO ONETIME ONE Stop: 11/28/20 05:38 Last Admin: 11/28/20 06:40 Dose: 30 ml Documented by: Misoprostol (Misoprostol 50 Mcg (1/2 Of 100 Mcg) Tab) 50 mcg PO Q4H PRN PRN Reason: cervical ripening Last Admin: 11/27/20 11:20 Dose: 50 mcg Documented by: Misoprostol (Misoprostol 25 Mcg (1/4 Of 100 Mcg) Tab) 25 mcg PO Q4H PRN PRN Reason: cervical ripening Last Admin: 11/27/20 16:15 Dose: 25 mcg Documented by: Nalbuphine HCl (Nalbuphine 10 Mg/1 Ml Vial) 20 mg IM ONETIME ONE Stop: 11/27/20 21:25 Last Admin: 11/27/20 21:33 Dose: 20 mg Documented by: Sufentanil Citrate (Sufentanil 50 Mcg/1 Ml Amp) Confirm Administered Dose 50 mcg .ROUTE .STK-MED ONE Stop: 11/28/20 00:16 Last Admin: 11/28/20 06:19 Dose: Not Given Documented by: - Infant Interaction Disposition, : in Room with Family Interaction: Holding Infant Feeding: Attempted ; Nursed Fair/Poor Support Person: - Recovery Exam Fundal Tone: Firm Fundal Level: At Umbilicus Fundal Placement: Midline Lochia Amount: Moderate Lochia Color: Rubra/Red Perineum Description: Intact, Minimal Bruising/Swelling Episiotomy/Laceration: Approximated Bladder Status: Voiding Urinary Elimination: Voided - Exam General: Alert, Oriented, Cooperative, No Acute Distress HEENT: Pupils Equal, Pupils Reactive, EOMI Neck: Supple Lungs: Clear to Auscultation, Normal Respiratory Effort Cardiovascular: Regular Rate, Regular Rhythm, No Murmurs GI/Abdominal Exam: Normal Bowel Sounds, Soft, Non-Tender, No Organomegaly, No Distention Extremities: Normal Inspection, Normal Range of Motion, Non-Tender, No Pedal Edema Skin: Warm, Dry, Intact Neurological: No New Focal Deficit, Normal Gait, Normal Speech, Normal Tone Psy/Mental Status: Alert, Normal Affect, Normal Mood - Problem List Review Problem List Initiated/Reviewed/Updated: Yes - My Orders Last 24 Hours: My Active Orders 11/28/20 Lunch Regular Diet [DIET] 11/28/20 Dinner Regular Diet [DIET] - Assessment Assessment:: PPD # 1 S/P Doing Well - Plan Plan:: Discharge to home. Follow-up with Dr. Desai at 6 week check up Ibuprofen/Tylenol for pain as needed. Triple Nipple Cream Rx given as needed.
--- NOTE | 2020-11-29 12:57 | DISCH ---
INDICATION FOR ADMISSION: Ms. Mota is a 30-year-old, 3, para 1-0-1- 1 female at 40-2/7 weeks' gestation who reported to Labor and delivery for induction of labor. She was given Cytotec cervical ripening. Once she started dilating, artificial rupture of membranes occurred with light meconium- stained fluid noted. Pitocin augmentation was begun. She tolerated her labor quite well. When she got uncomfortable, intrathecal anesthesia was obtained. Once she got to complete, she started pushing. She had a normal spontaneous vaginal delivery of a viable male infant over an intact perineum, TESSIE. There was a three-vessel cord, knot around the neck. The placenta was delivered by simple expression intact. The labia, vagina and cervix were inspected and intact. There was a second-degree midline perineal laceration that was repaired with 2-0 Vicryl suture using 1% xylocaine without epinephrine for pain control. She had 100 mL blood loss. She then recovered. She did quite well. She had delivery of a viable male infant, weighing 7 pounds 1 ounce, 18-1/2 inches long with scores of 8 at one minute and 9 at five minutes. No complications occurred throughout her hospital stay. She was afebrile. Vital signs were stable. She tolerated her diet well and ambulated quite well. She did have some difficulty with breast feeding, but other than that, the patient did quite well and was ready for discharge on day #1. LABORATORY AND DIAGNOSTIC STUDIES: On 11/27/2020, WBC 10.6, hemoglobin 13.5, hematocrit 40.0, platelet count 198,000. COVID test was negative. On 11/29/2020, WBC 9.4, hemoglobin 11.6, hematocrit 36.3, and platelet count 166,000. DISCHARGE INSTRUCTIONS: 1. Discharge to home. 2. Follow up with Dr. Desai next week for evaluation of her and then in six weeks for her checkup. 3. No douching, tampons, intercourse for 6 weeks. 4. Discharge instructions including activity, followup, medications, diet and wound care were discussed with the patient. She understands these and is willing to comply with these. 5. Ibuprofen and Tylenol p.r.n. for discomfort. 6. Triple nipple cream, prescription sent to [facility] for her. DISCHARGE DIAGNOSES: 1. A 40-3/7-week intrauterine . 2. Cytotec cervical ripening. 3. Pitocin augmentation. 4. Artificial rupture of membranes. 5. Light meconium-stained fluid. 6. Normal spontaneous vaginal delivery of a viable male weighing 7 pounds 1 ounce, 18-1/2 inches long with scores of 8 at one minute and 9 at five minutes. 7. Second-degree midline perineal laceration repair with 2-0 chromic suture. 8. Intrathecal anesthesia. [facility] /[id number]
== END 2020-11-29 14:50 | disposition home or self-care (01) | DRG 560 ==
LOC: DL.OBCHECK 08:50 → DL.OB 10:58 → OBSVTOIN 11-28 04:08 → EDSTATUS 12-01 08:47
PROVIDERS: ADMIT Family Medicine; ATTEND Family Medicine
PROC: 10E0XZZ Delivery of Products of Conception, External Approach (ICD-10-PCS; principal; 2020-11-28)
PROC: 10907ZC Drainage of Amniotic Fluid, Therapeutic from Products of Conception, Via Natural or Artificial Opening (ICD-10-PCS; 2020-11-28)
PROC: 0KQM0ZZ Repair Perineum Muscle, Open Approach (ICD-10-PCS; 2020-11-28)
PROC: 3E0P7VZ Introduction of Hormone into Female Reproductive, Via Natural or Artificial Opening (ICD-10-PCS; 2020-11-28)
PROC: 3E0R3BZ Introduction of Anesthetic Agent into Spinal Canal, Percutaneous Approach (ICD-10-PCS; 2020-11-28)
PROC: 00HU33Z Insertion of Infusion Device into Spinal Canal, Percutaneous Approach (ICD-10-PCS; 2020-11-28)
DX: O99.52 Diseases of the respiratory system complicating childbirth (principal); O77.0 Labor and delivery complicated by meconium in amniotic fluid; Z37.0 Single live birth; Z3A.40 40 weeks gestation of pregnancy; O99.013 Anemia complicating pregnancy, third trimester; D64.9 Anemia, unspecified; O21.0 Mild hyperemesis gravidarum; Z20.822 Contact with and (suspected) exposure to COVID-19; Z28.82 Immunization not carried out because of caregiver refusal; O70.1 Second degree perineal laceration during delivery; Z86.16 Personal history of COVID-19; J45.909 Unspecified asthma, uncomplicated; O99.344 Other mental disorders complicating childbirth; F41.9 Anxiety disorder, unspecified; Z90.49 Acquired absence of other specified parts of digestive tract; O99.214 Obesity complicating childbirth; E66.9 Obesity, unspecified
CPT/HCPCS: 01967; 36415; 51701; 59409; 85027; A9270-GY; J0171; J2300; J2405; J2590; J3010; J7120; U0002